=== PATIENT | male | born 1945 | race Caucasian/White ===

== ENCOUNTER 2016-11-26 08:41 | Inpatient (IN) | payer MEDICARE, BC ==
--- NOTE | ~2016-11-26 | DS ---
Discharge Summary [address] [place]. [address] NAME: GRACE LOPES : 43 STATUS : DIS IN PAT#: [id number] AGE: 70 ADM/REG DATE : 11/26/16 MR#: [id number] REPORT SERV DATE: 11/28/16 DICTATED BY: ANTONELLA FERGUSON DATE: 11/28/16 REPORT STATUS : Draft TRANSCRIBED BY: SIDRA DATE: 11/28/16 ADMISSION DATE: 11/26/2016 DISCHARGE DATE: DIAGNOSES: 1. Postop dysphagia secondary to tongue hematoma. 2. History of coronary artery disease with recent stent and mild troponinemia. 3. Hypertension. 4. Chronic Parkinson's. FOLLOWUP: 1. The patient is to follow up with his ENT specialist, Dr. Jaramillo, in one week. The patient is to continue with aspiration precautions while at home. 2. The patient is to follow up with his primary care physician in one to two weeks. The patient has been educated to keep the head of the bed greater than 90 degrees for all intake. DISCHARGE MEDICATIONS: Aspirin 81 mg p.o. daily, Proscar 5 mg p.o. q. evenings, fosinopril 10 mg p.o. q.a.m., Lipitor 20 mg one p.o. evening, Brilinta 90 mg p.o. b.i.d., Sinemet 25/100 one tab p.o. b.i.d., metoprolol tartrate 12.5 mg p.o. b.i.d., Prilosec 20 mg p.o. q. evening, nitroglycerine sublingual p.r.n., Augmentin 875 mg p.o. b.i.d. for two days, Voltaren gel topically q.6 hours p.r.n. CONSULTANTS: Cardiology with Dr. Quan [facility]. HOSPITAL COURSE: Please see H and P dictated by Dr. Adolfo Shaikh. This is a 70-year-old male with a past medical history of coronary artery disease, status post recent stents approximately six or seven months ago by Dr. Flores. Also, history of degenerative joint disease, Parkinson's, BPH, hypertension, presented to the ER after having tongue ulcer biopsy by ENT specialist, Dr. Jaramillo, and later developing some dysphagia to the point where the patient could not swallow his own saliva, found to have some signs of tongue hematoma at the postop site causing some dysphagia. He was initially admitted under observation. Placed on IV fluids to avoid dehydration. His ENT specialist, Dr. Jaramillo, also was consulted, who recommended for the patient to be on empiric IV Unasyn, to avoid infection of the tongue hematoma. He also ordered a CT of the brain and neck which did not reveal any signs of hematoma to the airway. Also, CT of the brain showed no acute findings, but some mild generalized atrophy and no evidence of deep muscle or extrinsic muscle tongue hematoma seen on the CT of the neck. There was small lymph nodes levels 1 through 6 bilaterally that were nonenlarged pathologically. Also, the patient was seen by Cardiology for mild troponinemia, most likely some demand ischemia, but no ACS. At the time of discharge, the patient was asking to be discharged to home and tolerating liquids. Also, cardiac medications were re-initiated. The patient was wanting to return to home on the day of discharge and was clinically stable and improved. The patient to follow up with his ENT specialist as an outpatient. Discharge Summary [address] [facility] [place]. [address] NAME: GRACE LOPES : 43 STATUS : DIS IN PAT#: [id number] AGE: 70 ADM/REG DATE : 11/26/16 MR#: [id number] REPORT SERV DATE: 11/28/16 DICTATED BY: ANTONELLA FERGUSON DATE: 11/28/16 REPORT STATUS : Draft TRANSCRIBED BY: SIDRA DATE: 11/28/16 DICTATED BY: Antonella Ferguson M.D. [facility]/SIDRA Antonella Ferguson M.D. / [id number] CC: Sayda Otero AMANDA M Brandon K. Cannon, JERODS
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
--- NOTE | ~2016-11-26 | CN ---
Consultation Report [facility] [address] [place]. [address] NAME: GRACE ALFORD : [birth year] STATUS : ADM IN [facility]GED WITH [facility]#: [id number] AGE: 70 ADM/REG DATE : 11/26/16 MR#: [id number] REPORT SERV DATE: 11/27/16 DICTATED BY: SORIN GRIMES DATE: 11/27/16 REPORT STATUS : Draft TRANSCRIBED BY: SIDRA DATE: 11/27/16 DATE OF CONSULTATION: PRIMARY CURING ROOM WORKER: Radha Tilley M.D. REQUESTING PHYSICIAN: Disha Thomas M.D. REASON FOR CONSULTATION: Abnormal troponin. HISTORY OF PRESENT ILLNESS: Mr. Alford is a 70-year-old man who has been followed by Cardiology at [place]. He had a lesion on his tongue which was biopsied on Friday. He began to have tongue swelling with more anxiety, tightness in his chest with trouble swallowing which led him to the emergency room. He was evaluated and felt that he could not control his secretions and was admitted. A troponin was ordered, was abnormal and consultation was requested. He had no exertional symptoms. He had some vague chest tightness. Around the time his tongue was swollen and had a hard time and he was nervous about the condition. Having no active chest pain now. He had stopped his Brilinta before the procedure. He has not had any for several days because he cannot swallow. We do not have any details about the intervention. He had no prior angina. He has no dyspnea at this time. No fevers or chills. No nausea or vomiting. REVIEW OF SYSTEMS: As per the history of present illness. Ten other systems are negative. PAST MEDICAL HISTORY: 1. Coronary artery disease with previous coronary stenting. 2. History of elevated troponin several years ago with a neck surgery. 3. Hypertension. 4. COPD. FAMILY HISTORY: Positive for heart disease. SOCIAL HISTORY: The patient is . No current reported tobacco. ALLERGIES: NO KNOWN DRUG ALLERGIES. HOME MEDICATIONS: Aspirin 81 daily, Lipitor 20 daily, Sinemet, Proscar 5 daily, fosinopril 10 daily, Lopressor 25 mg p.o. b.i.d., nitroglycerin, Prilosec, Brilinta 90 p.o. b.i.d. PHYSICAL EXAMINATION: VITAL SIGNS: The patient is afebrile. Heart rate 59, blood pressure 145/83. GENERAL: The patient is pleasant white male, in no apparent distress. HEENT: Conjunctivae are anicteric, no xanthelasma, lips without cyanosis. NECK: Supple. Speech is somewhat difficult with swollen tongue. No elevation of jugular venous pressure. CARDIOVASCULAR: Regular rate and rhythm. Normal S1, S2. The remainder is normal. Consultation Report [address] [address] NAME: GRACE ALFORD : [birth year] STATUS : ADM IN [facility]GED WITH [facility]#: [id number] AGE: 70 ADM/REG DATE : 11/26/16 MR#: [id number] REPORT SERV DATE: 11/27/16 DICTATED BY: SORIN GRIMES DATE: 11/27/16 REPORT STATUS : Draft TRANSCRIBED BY: SIDRA DATE: 11/27/16 DATA: Electrocardiogram shows sinus rhythm with no diagnostic ST-T wave changes. Labs significant for troponin of 0.13, repeat 0.16. CPK is 476 which is elevated. IMPRESSION: 1. Tongue swelling with inability to swallow. 2. Coronary artery disease with history of PCI 6-7 months ago per patient report. 3. Hypertension. 4. COPD. 5. Parkinson disease. 6. Abnormal troponin level. RECOMMENDATIONS: Mr. Alford is clinically stable. He has no angina. His EKGs shows no acute changes. His troponin elevation is nonspecific in this setting. I recommend at least putting him on aspirin by mouth per tube or per rectum if necessary. I recommend restarting Brilinta when clinically possible with the remainder of his other heart medications. Thank you for this consultation. Please contact me if you have any further questions. WO/SIDRA Sorin Grimes M.D., Ph.D, F.A.C.C. / [id number] CC: iDsha Thomas M.D.
[~2016-11-26 08:41] MED LIST: BRILINTA90 MG PO; GOODY'S HEADAC1 EACH PO; HALF81 PO; LIPITOR20 PO; LOP25 PO; MEDROLPAK4 PO; MONO10 PO; NEUR300 PO; NITROSTAT0.4 MG SL; PCET PO; PRILO PO; PRIN10 PO; PROSCAR5 PO; SIN25 PO; V5 PO
[2016-11-26 09:54] LABS: BASOPHILS 0.5 %; BASOPHILS ABSOLUTE 0.05 10/3/uL (0.0-0.16); EOSINOPHILS 1.4 %; EOSINOPHILS ABSOLUTE 0.13 10/3/uL (0.0-0.53); HEMATOCRIT 41.3 % (40.0-51.0); HEMOGLOBIN 14.3 g/dL (13.6-17.8); IMMATURE GRANULOCYTES 0.1 %; IMMATURE GRANULOCYTES ABSOLUTE 0.01 10/3/uL (0.0-0.11); LYMPHOCYTES 22.6 %; LYMPHOCYTES ABSOLUTE 2.15 10/3/uL (0.67-4.30); MEAN CORPUS HGB CONC 34.6 g/dL (32.0-36.0); MEAN CORPUSCULAR HEMOGLOB 31.5 pg (26.0-34.0); MEAN PLATELET VOLUME 11.2 fL (9.2-13.0); MONOCYTES 6.4 %; MONOCYTES ABSOLUTE 0.61 10/3/uL (0.21-1.20); NEUTROPHILS ABSOLUTE 6.58 10/3/uL (2.02-8.40); PLATELET COUNT 146 10/3/uL (150-400); RBC DISTRIBUTION WIDTH 14.7 % (12.0-16.0); RED CELL COUNT 4.54 10/6/uL (4.7-6.1)
[2016-11-26 09:57] LABS: ER CBC TAT 0 Hrs 10 Mins; MANUAL DIFF NO %; WHITE BLOOD CELLS 9.5 10/3/uL (4.5-10.5)
[2016-11-26 10:00] LABS: INTERNATIONAL NORMAL RATI 1.1 UNITS (-)
[2016-11-26 10:01] LABS: PARTIAL THROMBO TIME 27.7 SEC (22.5-37.2)
[2016-11-26 10:11] LABS: BUN (BLOOD UREA NITROGEN) 12 MG/DL (6-23); CHEST PAIN PROFILE TAT 0 Hrs 24 Mins; CHLORIDE, SERUM 107 MMOL/L (96-112); CO2 (CARBON DIOXIDE) 28 MMOL/L (24-34); CREATININE 0.82 MG/DL (0.70-1.30); GFR AFRICAN AMERICAN 103 ML/MIN (>=60); GFR NON AFRICAN AMERICAN 89 ML/MIN (>=60); GLUCOSE, SERUM 103 MG/DL (60-99); POTASSIUM, SERUM 3.8 MMOL/L (3.5-5.3); SODIUM, SERUM 141 MMOL/L (135-148); TROPONIN I 0.13 NG/ML (<0.05)
[2016-11-26] MEDS ORDERED: HALF81 PO (14:32)
[2016-11-26] MEDS ORDERED: MONO10 PO (14:33)
[2016-11-26] MEDS ORDERED: PROSCAR5 PO (14:35)
[2016-11-26] MEDS ORDERED: SIN25 PO (14:36)
[2016-11-26] MEDS ORDERED: LIPITOR20 PO (14:36)
[2016-11-26] MEDS ORDERED: BRILINTA90 MG PO (14:36)
[2016-11-26] MEDS ORDERED: PRILO PO (14:37)
[2016-11-26] MEDS ORDERED: LOP25 PO (14:37)
[2016-11-26] MEDS ORDERED: NITROSTAT0.4 MG SL (14:38)
[2016-11-27 05:04] LABS: BUN (BLOOD UREA NITROGEN) 9 MG/DL (6-23); CALCIUM, SERUM 9.2 MG/DL (8.5-10.4); CHLORIDE, SERUM 106 MMOL/L (96-112); CO2 (CARBON DIOXIDE) 27 MMOL/L (24-34); CREATININE 0.81 MG/DL (0.70-1.30); GFR AFRICAN AMERICAN 104 ML/MIN (>=60); GFR NON AFRICAN AMERICAN 89 ML/MIN (>=60); GLUCOSE, SERUM 93 MG/DL (60-99); POTASSIUM, SERUM 4.1 MMOL/L (3.5-5.3); SODIUM, SERUM 140 MMOL/L (135-148)
[2016-11-27 09:42] LABS: CK-MB 6.1 NG/ML
[2016-11-27 09:44] LABS: CKMB INDEX (NOT ORD) 1.3
[2016-11-27 09:45] LABS: TROPONIN I 0.16 NG/ML (<0.05)
[2016-11-28] MEDS ORDERED: VOLTAREN1 % TOP (10:09)
[2016-11-28] MEDS ORDERED: AUG875 PO (10:11)
== END 2016-11-28 14:32 | disposition home or self-care (01) | DRG 920 ==
LOC: ER 08:41 → CDU1 14:24 → CDU2 15:37 → 6NO 11-27 19:20
PROVIDERS: Internal Medicine; Physician Assistant
DX: K91.870 Postprocedural hematoma of a digestive system organ or structure following a digestive system procedure (principal); I24.8 Other forms of acute ischemic heart disease; G20 Parkinson's disease; J44.9 Chronic obstructive pulmonary disease, unspecified; R13.19 Other dysphagia; I25.10 Atherosclerotic heart disease of native coronary artery without angina pectoris; F41.9 Anxiety disorder, unspecified; Z79.82 Long term (current) use of aspirin; I10 Essential (primary) hypertension; N40.0 Benign prostatic hyperplasia without lower urinary tract symptoms; M19.90 Unspecified osteoarthritis, unspecified site; Y84.8 Other medical procedures as the cause of abnormal reaction of the patient, or of later complication, without mention of misadventure at the time of the procedure; Y81.8 Miscellaneous general- and plastic-surgery devices associated with adverse incidents, not elsewhere classified; Z95.5 Presence of coronary angioplasty implant and graft
CPT/HCPCS: 70460; 70491; 71010; 80048; 82550; 82553; 83735; 84484; 85025; 85610; 85730; 92610-GN; 93005; 99285; A9270-GY; G8996-CN-GN; G8997-CN-GN; G8998-CN-GN; J0295; J1170; Q9967